=== PATIENT | female | born 1955 | race Caucasian/White ===

== ENCOUNTER 2020-01-25 17:23 | Outpatient (CLI) | payer MEDICARE, OTHER ==
[~2020-01-25 17:23] MED LIST: ONDA4TAB6 PO
[2020-01-25 18:52] LABS: BASOPHILS % (AUTO) 0.3 % (0-1); EOSINOPHILS % (AUTO) 0.1 % (0-6); HEMATOCRIT 28.6 % (35.0-45.0); LYMPHOCYTES # (AUTO) 1.1 X10'3 (1.1-4.8); LYMPHOCYTES % (AUTO) 25.5 % (21-51); MEAN CORPUSCULAR HEMOGLOBIN 24.1 PG (27.0-31.0); MEAN CORPUSCULAR HGB CONC 31.5 g/dL (33.0-36.5); MEAN CORPUSCULAR VOLUME 76.7 FL (78-98); MEAN PLATELET VOLUME 7.5 FL (7.4-10.4); MONOCYTES # (AUTO) 0.3 X10'3 (0-0.9); MONOCYTES % (AUTO) 7.2 % (2-12); NEUTROPHILS % (AUTO) 66.9 % (42-75); PLATELET COUNT 311 X10'3 (140-440); RED BLOOD COUNT 3.73 X10'6 (4.20-5.60); RED CELL DISTRIBUTION WIDTH 17.5 % (11.5-14.5); WHITE BLOOD COUNT 4.5 X10'3 (4.5-11.0)
[2020-01-25 18:58] LABS: ALANINE AMINOTRANSFERASE 22 U/L (12-78); ALBUMIN 3.8 G/DL (3.4-5.0); ALBUMIN/GLOBULIN RATIO 1.1 (1.1-1.5); ALKALINE PHOSPHATASE 91 IU/L (46-116); ANION GAP 12 (8-16); ASPARTATE AMINO TRANSFERASE 18 U/L (10-37); BILIRUBIN,TOTAL 0.4 MG/DL (0.1-1.0); BLOOD UREA NITROGEN 18 MG/DL (7-18); BUN/CREATININE RATIO 24.3 (6.6-38.0); CALCIUM 8.3 MG/DL (8.5-10.1); CHLORIDE 104 MMOL/L (99-107); CREATININE 0.74 MG/DL (0.40-0.90); GLUCOSE 77 MG/DL (70-104); POTASSIUM 4.8 MMOL/L (3.5-5.1); SODIUM 138 MMOL/L (135-145); TOTAL CARBON DIOXIDE 22.4 MMOL/L (24-32); TOTAL PROTEIN 7.3 G/DL (6.4-8.2); eGFR 80 ML/MIN
== END 2020-01-25 23:59 | disposition home or self-care (01) ==
LOC: LAB SPEC 17:23
PROVIDERS: ATTEND Family Medicine
DX: E86.0 Dehydration (principal); G43.A0 Cyclical vomiting, in migraine, not intractable
CPT/HCPCS: 36415; 80053; 85025

== ENCOUNTER 2020-03-12 11:44 | Outpatient (CLI) | payer MEDICARE, OTHER ==
[2020-03-12 11:59] LABS: EOSINOPHILS % (AUTO) 0.2 % (0-6); HEMATOCRIT 25.2 % (35.0-45.0); HEMOGLOBIN 7.7 g/dl (12.0-16.0); LYMPHOCYTES % (AUTO) 30.5 % (21-51); MEAN CORPUSCULAR HGB CONC 30.6 g/dL (33.0-36.5); MEAN CORPUSCULAR VOLUME 75.4 FL (78-98); MEAN PLATELET VOLUME 8.3 FL (7.4-10.4); MONOCYTES # (AUTO) 0.2 X10'3 (0-0.9); MONOCYTES % (AUTO) 7.2 % (2-12); NEUTROPHILS % (AUTO) 61.1 % (42-75); PLATELET COUNT 74 X10'3 (140-440); RED BLOOD COUNT 3.35 X10'6 (4.20-5.60); RED CELL DISTRIBUTION WIDTH 17.2 % (11.5-14.5); WHITE BLOOD COUNT 3.2 X10'3 (4.5-11.0)
[2020-03-12 12:12] LABS: ALANINE AMINOTRANSFERASE 18 U/L (12-78); ALBUMIN 3.2 G/DL (3.4-5.0); ALKALINE PHOSPHATASE 90 IU/L (46-116); ANION GAP 9 (8-16); ASPARTATE AMINO TRANSFERASE 20 U/L (10-37); BILIRUBIN,TOTAL 0.3 MG/DL (0.1-1.0); BLOOD UREA NITROGEN 9 MG/DL (7-18); BUN/CREATININE RATIO 14.1 (6.6-38.0); CALCIUM 7.8 MG/DL (8.5-10.1); CHLORIDE 110 MMOL/L (99-107); CREATININE 0.64 MG/DL (0.40-0.90); GLUCOSE 98 MG/DL (70-104); POTASSIUM 4.4 MMOL/L (3.5-5.1); SODIUM 144 MMOL/L (135-145); TOTAL CARBON DIOXIDE 24.7 MMOL/L (24-32); TOTAL PROTEIN 6.3 G/DL (6.4-8.2); eGFR > 90 ML/MIN
== END 2020-03-12 23:59 | disposition home or self-care (01) ==
LOC: LAB SPEC 11:44
PROVIDERS: ATTEND Family Medicine
DX: G43.A0 Cyclical vomiting, in migraine, not intractable (principal); E86.0 Dehydration
CPT/HCPCS: 80053; 85025

== ENCOUNTER 2022-03-15 21:12 | Emergency (ER) | payer MEDICARE, OTHER ==
[~2022-03-15] VITALS: Ht 167.6 cm; Wt 68.2 kg
--- NOTE | 2022-03-15 21:45 | NUR ---
as soon as pt arrived in the ER we tried to see if a 10 F malhotra cath would advance. The track is there but once you get in about 2 inches it just stops. Not able to find the hole for the stomach. Dr. Rios tried as well.
--- NOTE | 2022-03-15 22:06 | NUR ---
called Dr Funes. He said he thinks it is for IR. Dr Rios notified to admit pt and talk to Dr Gambino.
[2022-03-15 22:51] VITALS: BP 103/62
[2022-03-16] MEDS ORDERED: HYDR-3965 PO (11:50)
== END 2022-03-15 22:54 | disposition home or self-care (01) ==
LOC: ER 21:13 → MERGE 21:13 → ER 22:54
DX: K94.23 Gastrostomy malfunction (principal); Z79.899 Other long term (current) drug therapy
CPT/HCPCS: 99284; A4340; A6449

== ENCOUNTER 2022-03-16 07:41 | Emergency (ER) | payer MEDICARE, OTHER ==
[~2022-03-16] VITALS: Ht 167.6 cm; Wt 68.0 kg
[2022-03-16] MEDS ORDERED: LIDOcaine 1% 30ml preserv. free vial ONE (10:22)
[2022-03-16] MEDS ORDERED: iohexol 300mg/ml 100ml inj. ONE (10:22)
[2022-03-16] MEDS ORDERED: oxyCODONE/APAP 5-325mg tablet PO ONE (11:50)
[2022-03-16] MEDS ORDERED: HYDR-3965 PO (11:50)
[2022-03-16 12:35] VITALS: BP 132/78
[2022-03-16] MEDS ORDERED: morphine 4 MG/ML inj SYRINge IM ONE (12:45)
== END 2022-03-16 12:56 | disposition home or self-care (01) ==
LOC: ER 07:42
DX: K94.23 Gastrostomy malfunction (principal)
CPT/HCPCS: 49450; 99284; C1769; J2270; J3490; J7030; Q9967

== ENCOUNTER 2022-08-01 08:32 | Emergency (ER) | payer MEDICARE, OTHER ==
[~2022-08-01] VITALS: Ht 167.6 cm; Wt 70.5 kg
[2022-08-01 08:42] VITALS: BP 130/78
== END 2022-08-01 10:12 | disposition home or self-care (01) ==
LOC: ER 08:32
DX: K94.23 Gastrostomy malfunction (principal); K31.84 Gastroparesis; Z90.49 Acquired absence of other specified parts of digestive tract
CPT/HCPCS: 99281

== ENCOUNTER 2022-08-07 08:50 | Emergency (ER) | payer MEDICARE, OTHER ==
[~2022-08-07] VITALS: Ht 167.6 cm; Wt 107.2 kg
[2022-08-07] MEDS ORDERED: diatrozoate meglu/diatrozoate sod (37% iodine) 120ML oral solution PO ONE ×2 (09:45→10:00)
[2022-08-07] MEDS ORDERED: diatr meglu/diatrizoate 30ml oral sol.-(3 dose) bottle PO ONE (10:15)
[2022-08-07 10:36] VITALS: BP 95/72
== END 2022-08-07 10:39 | disposition home or self-care (01) ==
LOC: ER 08:51
DX: K94.23 Gastrostomy malfunction (principal); Z79.899 Other long term (current) drug therapy
CPT/HCPCS: 43762; 74018; 99284; Q9963; A4338